=== PATIENT | female | born 1970 | race Caucasian/White ===

== ENCOUNTER 2018-09-11 17:15 | Emergency (ER) | payer BC ==
--- NOTE | 2018-09-11 17:26 | EDPHY ---
H & P Time Seen by Provider: 09/11/18 17:25 HPI/ROS: CHIEF COMPLAINT: [ ] HISTORY OF PRESENT ILLNESS: [Need 4: Location, Duration, Severity, Quality, Context, Timing Modifying Factors, Associated S&S] REVIEW OF SYSTEMS: A comprehensive 10 point review of systems is otherwise negative aside from elements mentioned in the history of present illness. - Medical/Surgical History Hx Asthma: No Hx Chronic Respiratory Disease: No Hx Diabetes: No Hx Cardiac Disease: No Hx Renal Disease: No Hx Cirrhosis: No Hx Alcoholism: No Hx HIV/AIDS: No Hx Splenectomy or Spleen Trauma: No Other PMH: PTSD - Social History Smoking Status: Current every day smoker - Physical Exam Exam: General Appearance: [Alert, no distress] Eyes: [Pupils equal and round no pallor or injection] ENT, Mouth: [Mucous membranes moist] Respiratory: [There are no retractions, lungs are clear to auscultation] Cardiovascular: [Regular rate and rhythm] Gastrointestinal: [Abdomen is soft and nontender, no masses, bowel sounds normal] Neurological: [A&O, normal motor function, normal sensory exam, normal cranial nerves] Skin: [Warm and dry, no rashes] Musculoskeletal: [Neck is supple nontender] Extremities: [symmetrical, full range of motion] Psychiatric: [Patient is oriented X 3, there is no agitation] Allergies/Adverse Reactions: povidone-iodine [From Betadine] Allergy (Verified 03/06/16 15:14) soap [From Betadine] Allergy (Verified 03/06/16 15:14) BEE STINGS Allergy (Uncoded 11/04/13 16:14) IODINE Allergy (Uncoded 11/04/13 16:14) SHELLFISH Allergy (Uncoded 11/04/13 16:14) Home Medications: Medication Instructions Recorded Albuterol [Proventil Inhaler HFA 1 - 2 puffs IH Q4H PRN 03/06/16 (*)] Ibuprofen/Diphenhydramine HCl 1 each PO HS 03/06/16 [Ibuprofen Pm Softgel] Nicotine Polacrilex [Nicorette gum 2 mg BC PRN PRN 03/06/16 (*)] Nicotine [Nicoderm Cq 21 mg (*)] 21 mg TD DAILY PRN 03/06/16 Acetaminophen [Tylenol 325mg (*)] 650 mg PO Q4 PRN #0 tab 03/07/16 Nicotine [Nicoderm Cq 21 mg (*)] 21 mg TD DAILY #0 patch 03/07/16 diphenhydrAMINE [Benadryl 25 MG 25 mg PO HS #0 cap 03/07/16 (*)] Departure - Departure Referrals: Estefany Leigh MD [Primary Care Provider] - As per Instructions
--- NOTE | 2018-09-11 17:34 | EDPHY ---
H & P Stated Complaint: CP last 3 days. Seen at [facility] and sent here for eval Time Seen by Provider: 09/11/18 17:25 HPI/ROS: CHIEF COMPLAINT: Chest pain, hypertension HISTORY OF PRESENT ILLNESS: The patient presents emergency department 3 days of intermittent chest pain and newly diagnosed hypertension. The patient saw her primary care provider with the symptoms who referred her to urgent care ultimately referred her to the emergency department. The patient complains of epigastric and lower chest pain. She reports associated nausea. It has been present more often than not for the past 3 days. She denies any cough or congestion. The pain is not pleuritic. The pain is worsened palpation in the epigastrium. The patient denies rash. She currently takes no regular medications. The patient does smoke. REVIEW OF SYSTEMS: A comprehensive 10 point review of systems is otherwise negative aside from elements mentioned in the history of present illness. Source: Patient Exam Limitations: No limitations - Personal History LMP (Females 10-55): Now Current Tetanus/Diphtheria Vaccine: Yes - Medical/Surgical History Hx Asthma: No Hx Chronic Respiratory Disease: No Hx Diabetes: No Hx Cardiac Disease: No Hx Renal Disease: No Hx Cirrhosis: No Hx Alcoholism: No Hx HIV/AIDS: No Hx Splenectomy or Spleen Trauma: No Other PMH: PTSD - Social History Smoking Status: Current every day smoker - Physical Exam Exam: General Appearance: Alert, no distress Eyes: Pupils equal and round no pallor or injection ENT, Mouth: Mucous membranes moist Respiratory: There are no retractions, lungs are clear to auscultation Cardiovascular: Regular rate and rhythm Gastrointestinal: Epigastric tenderness to palpation Neurological: 5/5 strength noted all 4 extremities Skin: Warm and dry, no rashes Musculoskeletal: Neck is supple nontender Extremities: symmetrical, full range of motion Psychiatric: Patient is oriented X 3, there is no agitation Constitutional: Initial Vital Signs Temperature (C) 36.8 C 09/11/18 17:22 Heart Rate 100 09/11/18 17:22 Respiratory Rate 18 09/11/18 17:22 Blood Pressure 174/108 H 09/11/18 17:22 O2 Sat (%) 96 09/11/18 17:22 O2 Delivery Mode Room Air Allergies/Adverse Reactions: povidone-iodine [From Betadine] Allergy (Verified 03/06/16 15:14) soap [From Betadine] Allergy (Verified 03/06/16 15:14) BEE STINGS Allergy (Uncoded 11/04/13 16:14) SHELLFISH Allergy (Uncoded 11/04/13 16:14) Home Medications: Medication Instructions Recorded Albuterol [Proventil Inhaler HFA 1 - 2 puffs IH Q4H PRN 03/06/16 (*)] Ibuprofen/Diphenhydramine HCl 1 each PO HS 03/06/16 [Ibuprofen Pm Softgel] Nicotine Polacrilex [Nicorette gum 2 mg BC PRN PRN 03/06/16 (*)] Nicotine [Nicoderm Cq 21 mg (*)] 21 mg TD DAILY PRN 03/06/16 Acetaminophen [Tylenol 325mg (*)] 650 mg PO Q4 PRN #0 tab 03/07/16 Nicotine [Nicoderm Cq 21 mg (*)] 21 mg TD DAILY #0 patch 03/07/16 diphenhydrAMINE [Benadryl 25 MG 25 mg PO HS #0 cap 03/07/16 (*)] Medical Decision Making - Diagnostics EKG Interpretation: EKG: Complete interpretation has been separately recorded in the [facility] archive. Summary impression: Sinus rhythm, rate 93, no ischemic changes noted Imaging Results: CT chest angiogram: Negative for pulmonary embolism or dissection, 60% renal artery stenosis noted. ED Course/Re-evaluation: Patient presents to the ED with hypertension chest pain which has been present for the past several days. The patient does smoke. She has a history of untreated hypertension and does have risk factors for coronary artery disease. The patient denies her chest pain as being particularly exertional. It is somewhat reproducible. It is also in her epigastrium. Workup in the emergency department consisted of an EKG which demonstrates no evidence of ischemia. The patient was noted to have a normal troponin. The patient had an elevated blood pressure upon arrival which self corrected in the emergency department without intervention. At 9:30 p.m. The patient's blood pressure is currently 140/90. Workup in the emergency department is unrevealing. She has normal liver function tests, normal lipase, normal CT pulmonary angiogram and a reassuring examination. The patient was offered admission to the hospital versus discharged home and outpatient follow-up. The patient prefers to follow up as an outpatient. She will be discharged home with customary aftercare instructions and return precautions. Differential Diagnosis: Differential diagnosis considered includes pulmonary embolism, aortic dissection , esophagitis, hepatitis, pancreatitis, cholecystitis, acute coronary syndrome - Data Points Laboratory Results: Laboratory Results 09/11/18 17:33 09/11/18 17:33 09/11/18 09/11/18 09/11/18 17:36 17:33 17:33 WBC 9.98 10^3/uL H 10^3/uL (3.80-9.50) RBC 4.33 10^6/uL 10^6/uL (4.18-5.33) Hgb 14.6 g/dL g/dL (12.6-16.3) Hct 43.5 % % (38.0-47.0) MCV 100.5 fL H fL (81.5-99.8) MCH 33.7 pg pg (27.9-34.1) MCHC 33.6 g/dL g/dL (32.4-36.7) RDW 11.8 % % (11.5-15.2) Plt Count 258 10^3/uL 10^3/uL (150-400) MPV 9.8 fL fL (8.7-11.7) Neut % (Auto) 75.7 % H % (39.3-74.2) Lymph % (Auto) 17.5 % % (15.0-45.0) [place] % (Auto) 4.9 % % (4.5-13.0) Eos % (Auto) 0.9 % % (0.6-7.6) Baso % (Auto) 0.6 % % (0.3-1.7) Nucleat RBC Rel Count 0.0 % % (0.0-0.2) Absolute Neuts (auto) 7.55 10^3/uL H 10^3/uL (1.70-6.50) Absolute Lymphs (auto) 1.75 10^3/uL 10^3/uL (1.00-3.00) Absolute Monos (auto) 0.49 10^3/uL 10^3/uL (0.30-0.80) Absolute Eos (auto) 0.09 10^3/uL 10^3/uL (0.03-0.40) Absolute Basos (auto) 0.06 10^3/uL 10^3/uL (0.02-0.10) Absolute Nucleated RBC 0.00 10^3/uL 10^3/uL (0-0.01) Immature Gran % 0.4 % % (0.0-1.1) Immature Gran # 0.04 10^3/uL 10^3/uL (0.00-0.10) Sodium 135 mEq/L mEq/L (135-145) Potassium 4.3 mEq/L mEq/L (3.5-5.2) Chloride 107 mEq/L mEq/L (97-110) Carbon Dioxide 23 mEq/l mEq/l (22-31) Anion Gap 5 mEq/L L mEq/L (6-14) BUN 10 mg/dL mg/dL (7-23) Creatinine 0.5 mg/dL L mg/dL (0.6-1.0) Estimated GFR > 60 Glucose 92 mg/dL mg/dL (70-100) Calcium 9.0 mg/dL mg/dL (8.5-10.4) Total Bilirubin 0.7 mg/dL mg/dL (0.1-1.4) Conjugated Bilirubin 0.4 mg/dL mg/dL (0.0-0.5) Unconjugated Bilirubin 0.3 mg/dL mg/dL (0.0-1.1) AST 31 IU/L IU/L (14-46) ALT 21 IU/L IU/L (9-52) Alkaline Phosphatase 106 IU/L IU/L (38-126) POC Troponin I 0.00 ng/mL ng/mL (0.00-0.08) Total Protein 7.7 g/dL g/dL (6.3-8.2) Albumin 4.6 g/dL g/dL (3.5-5.0) Lipase 87 IU/L IU/L (23-300) Point of Care Test Results: Chemistry 09/11/18 17:36 POC Troponin I 0.00 ng/mL ng/mL (0.00-0.08) Departure - Departure Disposition: Home, Routine, Self-Care Clinical Impression: Chest pain Condition: Good Instructions: Chest Pain (ED) Additional Instructions: 1. Based upon the testing done in the Emergency Department today we see no evidence of a heart attack. 2. We are unable to fully exclude coronary artery disease based upon the testing available in the Emergency Department. 3. For this reason, we would like you to be seen by cardiology for consideration of additional testing within the next 3 days. 4. Please contact the seasonal tax preparer you have been referred to schedule this appointment as soon as possible. Their offices are typically open from 8:30am- 5pm M-F. 5. Please return to the Emergency Department immediately for any recurrent chest pain, difficulty breathing or other concerns. Referrals: Maninder Nathan MD [Medical Doctor] - As per Instructions
--- NOTE | 2018-09-11 17:36 | CPEKG ---
Test Reason : OPEN Blood Pressure : / mmHG Vent. Rate : 093 BPM Atrial Rate : 092 BPM P-R Int : 112 ms QRS Dur : 089 ms QT Int : 356 ms P-R-T Axes : 049 036 044 degrees QTc Int : 443 ms Sinus rhythm Confirmed by Vijya Jansen ([id number]) on 09/11/2018 5:35:35 PM Referred By: Vijay Jansen Confirmed By:Vijay Jansen
[2018-09-11 17:57] LABS: PLATELET COUNT 258 10^3/uL (150-400)
[2018-09-11] MEDS ORDERED: IOPAMIDOL (ISOVUE 370) 100 ML BTL IV ONE (19:11)
[2018-09-11 21:46] VITALS: BP 140/111
== END 2018-09-11 21:45 | disposition home or self-care (01) ==
DX: R07.9 Chest pain, unspecified (principal); I10 Essential (primary) hypertension
CPT/HCPCS: 84484-ER; Q9967

== ENCOUNTER → 2018-09-30 | Outpatient (CLI) | payer BC | LOC: BMCIMAGING 12:59 | PROVIDERS: ATTEND Midwife | DX: N64.4 Mastodynia (principal) ==